=== PATIENT | male | born 1980 | race African-American/Black ===

== ENCOUNTER 2024-03-19 10:52 | Emergency (ER) | payer MEDICAID, OTHER ==
[~2024-03-19] VITALS: Ht 175.3 cm; Wt 74.0 kg
[2024-03-19 11:23] VITALS: O2SAT 100
[2024-03-19 11:43] LABS: BASOPHILS % 0.7 % (0.0-2.0); DIFFERENTIAL COMMENT 0; EOSINOPHILS % 1.5 % (0.0-5.0); HEMOGLOBIN. 9.6 g/dL (14.0-18.0); LYMPHOCYTES % 22.3 % (20.0-50.0); MEAN CORPUSCULAR HEMOGLOBIN 37.2 pg (28.0-32.0); MEAN CORPUSCULAR HGB CONC 34.3 g/dL (31.0-37.0); MEAN CORPUSCULAR VOLUME 108.4 fL (80.0-94.0); MEAN PLATELET VOLUME 7.6 fl (7.4-10.4); MONOCYTES % 14.5 % (2.0-8.0); PLATELET 279 x1000/uL (130-400); RED BLOOD CELL COUNT 2.58 mill/uL (4.7-6.1); RED CELL DISTRIBUTION WIDTH 19.1 % (11.6-14.6); WHITE BLOOD COUNT 7.4 x1000/uL (4.5-11.0)
[2024-03-19 11:54] LABS: CHLORIDE 102 mEq/L (98-107); POTASSIUM 3.5 mEq/L (3.5-5.1); SODIUM 134 mEq/L (136-145)
[2024-03-19 11:55] LABS: CARBON DIOXIDE 27 mEq/L (21-32)
[2024-03-19 11:56] LABS: CALCIUM 9.4 mg/dL (8.7-10.4)
[2024-03-19 12:00] LABS: CREATININE 0.8 mg/dL (0.6-1.3); GLUCOSE 88 mg/dL (70-105)
[2024-03-19 12:01] LABS: UREA NITROGEN BLOOD 9 mg/dL (9-23)
[2024-03-19 12:02] LABS: ALANINE AMINOTRANSFERASE 7 IU/L (10-49); ALBUMIN 3.9 g/dL (3.2-4.8); ASPARTATE AMINOTRANSFERASE 28 IU/L (<34)
[2024-03-19 12:03] LABS: BILIRUBIN TOTAL 0.8 mg/dL (0.1-1.0); PROTEIN TOTAL 7.5 g/dL (6.0-8.3)
[2024-03-19] MEDS: CEFTRIAXONE 1GM/50ML 50 ML IV NR (15:48)
[2024-03-19] MEDS: VANCOMYCIN 1G PREMIX 200 ML IV NR (15:48)
[2024-03-19] MEDS ORDERED: SULF1TAB48 MT (17:14)
[2024-03-19] MEDS: IBUPROFEN 400MG TABLET PO ONE (17:27)
[2024-03-19 17:30] VITALS: BP 145/97; PULSE 75; RESP 14; TEMP 98.2
[2024-03-19] MEDS ORDERED: IOHEXOL-300 100 ML BOTTLE ONE (23:14)
== END 2024-03-19 17:40 | disposition home or self-care (01) ==
LOC: ER 10:52 → EDBEDREQ 15:06 → CANBEDREQ 17:11 → ER 17:40
DX: M79.89 Other specified soft tissue disorders (principal); M79.671 Pain in right foot; Z98.890 Other specified postprocedural states
CPT/HCPCS: 80053; 85025; 36415; 93971; 73610; 73630; 73700; 96374; 96375; 99285; Q9967; J0696; J3370; Z7610